=== PATIENT | female | born 1935 | race Caucasian/White ===

== ENCOUNTER → 2017-07-11 | Outpatient (CLI) | payer BC, MEDICARE ==
[2016-11-14 11:00] VITALS: BP 143/61
[~2017-07-11] MED LIST: ASCO500C PO; CYAN250012 PO; DABI150C PO; GREE1CAP5 PO; MULT-245 PO; OMEG500C PO; POTASSIUM CHLO10 MEQ PO; PRAV20TA2 PO; SERT50TA PO
--- NOTE | 2017-07-11 15:24 | KCIC ---
Indication: Right radiculopathy. Pacemaker. Fall in the last few months with swelling on left side. Technique: Axial images and coronal and sagittal reformatted images are provided. No comparison is available. One or more of the following individualized dose reduction techniques were utilized for this examination: 1. Automated exposure control 2. Adjustment of the mA and/or kV according to patient size 3. Use of iterative reconstruction technique Findings: There is levocurvature centered at L1-L2. There is endplate sclerosis greatest at L1-L2. Schmorl's nodes are noted at L1-L2 and L2-L3. There is atheromatous disease in the abdominal aorta without aneurysm. Canal and foraminal evaluation is limited without intrathecal contrast. There are 5 lumbar type vertebral bodies. Degenerative findings will be estimated below. T12-L1: There is a disc bulge without canal or foraminal compromise. L1-L2: There is a disc osteophyte complex, greater on the right. Narrowing of the interspace is greater on the right. There is no canal stenosis. There is high-grade right foraminal narrowing. L2-L3: Minimal disc bulge and facet hypertrophy are noted without canal or foraminal compromise. L3-L4: Disc bulge and facet and ligamentum flavum hypertrophy are noted. Midline AP diameter of the thecal sac appears narrowed to 9-10 mm, mild. There is also mild left foraminal narrowing. L4-L5: Disc bulge and facet and ligamentum flavum hypertrophy are noted without canal or foraminal compromise. L5-S1: There is facet hypertrophy without high-grade canal or foraminal compromise. IMPRESSION: Degenerative changes in the lumbar spine likely result in mild canal stenosis at L3-L4. Foraminal narrowing appears high-grade on the right at L1-L2. Electronically signed by: Cole Boogie MD (07/11/2017 3:21 PM) [facility]
== END | disposition home or self-care (01) ==
LOC: KCIC CT 14:29
PROVIDERS: ATTEND Internal Medicine
DX: M54.16 Radiculopathy, lumbar region (principal); W19.XXXD Unspecified fall, subsequent encounter
CPT/HCPCS: 72131

== ENCOUNTER → 2017-08-05 | Outpatient (CLI) | payer BC, MEDICARE ==
[2016-11-14 11:00] VITALS: BP 143/61
[~2017-08-05] MED LIST changes: +ASPI-482 PO; +CRESTOR5 MG PO; +MAGN400C PO; +METR500T8 PO; +MINO50CA PO; +PROPOFOL 20 ML IV ONE
--- NOTE | 2017-08-05 18:14 | PAIN ---
DATE OF SERVICE: 08/05/2017 INITIAL CONSULTATION FOR PAIN CLINIC CHIEF COMPLAINT: Low back and right lower extremity pain. HISTORY OF PRESENT ILLNESS: This is an 82-year-old female who presents with history of pain for many years, increasing over the past 3-4 months, low back and the right lower extremity with radiating pain into the lateral anterior aspect of the thigh, lateral calf, medial calf into the big toe, numbness and tingling. The pain is a shooting, throbbing pain and is becoming more constant with numbness and burning, cramping pain in the mid back and low back as well. The patient reports she feels that her back swells on the left side and gets "puffy" when the pain is at its worst. The patient reports it is worse with standing, walking, changing positions, better with sitting and better with lying down, but it wakes her from sleep several times at night, usually on the left side in the mid back. The patient reports she is taking melatonin to try and get back to sleep, which she states usually helps, but not every night. The patient reports it does not affect her bowel or bladder control. The pain does not affect her ability to walk significantly unless she is on her feet for more than 10-15 minutes and feels that right leg just fatigues much more easily than the left one. The patient reports no loss of motor function, but significant fatigability in the right leg with ambulation. The patient reports disability rating from 0-10, 10 being the worst, is at 8 with family and home responsibilities, recreation, occupation and life support activities; is at 5 with social activity, 0 with self-care. The patient has tried Aleve, which helps to a mild extent, but generally has not been helping over the past 3-4 weeks. The patient reports she has had previous epidural injections many years ago at an outside facility, has had physical therapy, which she is redoing and starting again in about 1 week, has had chiropractic treatment as well as exercise, which she does currently and stretching and strengthening. PAST MEDICAL HISTORY: Significant for shortness of breath, anemia with blood transfusions, pacemaker placement for atrial fibrillation, history of arthritis, osteoporosis, strokes, headaches. PREVIOUS SURGERIES: Include total hysterectomy, carpal tunnel release on the right, fractured ankle bilaterally, pacemaker and battery replacement, most recently in 2014, bilateral cataract extractions and bladder suspension x 2. CURRENT MEDICATIONS: Include Pradaxa, minocycline, Zoloft, rosuvastatin, metronidazole, daily baby aspirin, vitamin C, multivitamins, magnesium, fish oil. ALLERGIES: THE PATIENT IS ALLERGIC TO CONTRAST DYE AND IBUPROFEN. FAMILY HISTORY: Significant for heart disease, cancer in a brother. SOCIAL HISTORY: The patient drinks alcohol only occasionally. Does not smoke. He is , lives with her spouse locally in [place], [place], is currently retired. REVIEW OF SYSTEMS: The patient's review of systems is positive for those items mentioned in history of present illness. All systems reviewed and otherwise negative. It is complete, full and well documented on the patient's chart. PHYSICAL EXAMINATION: VITAL SIGNS: Today, the patient's blood pressure is 140/75, pulse 64, respirations 16, temperature is 97.6 degrees Fahrenheit, height is 5 feet 3 inches, weight is 138 pounds. GENERAL: The patient is awake, alert, oriented, appropriate, very pleasant demeanor. HEENT: Head shows normocephalic, atraumatic. Extraocular movements are intact and symmetrical. Oral cavity, mucous membranes are moist and pink. Dentition is intact. NECK: Shows anterior throat supple without palpable lymphadenopathy noted. Swallow reflex is symmetrical. CHEST: Shows normal on inspection. Breath sounds are clear to auscultation bilaterally. HEART: Shows S1 and S2 clear. No murmurs auscultated. ABDOMEN: Soft, nontender, nondistended. No palpable organomegaly. There is no rebound or guarding demonstrated. The patient shows pacemaker placement of the left infraclavicular region. BACK: Shows spine grossly in the midline. Lumbar and thoracic kyphosis are normal in appearance and lumbar lordotic curvature is normal. Cervical lordotic curvature is normal as well. Neck shows full rotational motion of cervical spine, both laterally as well as extension and flexion without difficulty. The patient's low back shows on inspection and mid back shows hypertrophy of the left thoracic paraspinous musculature in the middle and lower distribution as well as the entire upper, lower and middle distribution of the lumbar paraspinous musculature, which is firm to a moderate extent with palpation and tender moderately as well, but not tender on the right side and slightly hypertrophied, left compared to the right in the mid thoracic and low thoracic as well as the upper, middle and lower distribution of paraspinous muscles on the lumbar distribution. The patient shows good rotation of motion; however, both laterally as well as extension and flexion 10 degrees, right and left extension 10 degrees, forward flexion 45 degrees without significant pain reported. No tenderness over the spinous processes, sacrum or sacroiliac regions. Lower extremities show deep tendon reflexes at 1+ in the patellar and tendo calcaneus tendons. Motor exam is strong with 5/5 dorsiflexion, extension, quadriceps and hamstring flexion is symmetrical. Peripheral pulses are 1+ posterior tibial and dorsalis pedis pulses. No peripheral edema is noted. No clubbing, no cyanosis. Straight leg raise noted to be positive on the right at about 35 degrees, which is decreased with knee flexion. Left side is negative. Gaenslen and Samuel maneuvers are negative bilaterally. The patient is able to stand, stand on her toes without significant difficulty without loss of balance, is walking with a normal appearing gait. Does not appear to favor the right or left lower extremities, not using any assistive devices to ambulate such as canes or walkers. DIAGNOSTIC STUDIES: CT scan of the lumbar spine dated 07/11/2017 shows L3-L4 disk bulge and facet ligamentum flavum hypertrophy with midline AP diameter of the thecal sac narrowed at 9-10 mm mildly, also left mild foraminal narrowing. L4-L5 shows disk bulge and facet ligamentum flavum hypertrophy without canal or foraminal compromise. IMPRESSION: 1. This is an 82-year-old female with long history of low back pain, increasing over the past 3-4 months, right lower extremity in a radicular fashion. 2. Arthritis. 3. Atrial fibrillation with pacemaker. PLAN: Options were discussed with the patient including conservative medical management, physical therapy and interventional techniques. She would like to pursue interventional techniques. She is currently doing therapies and exercise on her own and physical therapy to start next week. We discussed a lumbar epidural steroid injection using description as well as anatomical models to describe the procedure. We will first check with her garbage man to hold the Pradaxa for approximately 4 days and if this is cleared and deemed to be safe to do so, we will have her return for lumbar epidural steroid injection at that time. The patient understands and agrees, also keep taking her medication until we hear back from her garbage man and we will notify her of the response. The patient will continue to increase her activity as tolerated and follow up with physical therapy coming next week as well. QUYNH SERNA MD DR: CHRIS/yury JOB#: [id number] / [id number] BROOK Mcarthur MD
== END | disposition home or self-care (01) ==
LOC: PNCL 10:17
PROVIDERS: ATTEND Anesthesiology
DX: M81.0 Age-related osteoporosis without current pathological fracture (principal); I48.91 Unspecified atrial fibrillation; M79.604 Pain in right leg; M54.5 Low back pain; R53.83 Other fatigue; R20.0 Anesthesia of skin; Z86.73 Personal history of transient ischemic attack (TIA), and cerebral infarction without residual deficits; Z95.0 Presence of cardiac pacemaker
CPT/HCPCS: G0463; J2704

== ENCOUNTER → 2017-08-17 | Outpatient (CLI) | payer BC, MEDICARE ==
[2016-11-14 11:00] VITALS: BP 143/61
[~2017-08-17] MED LIST changes: +IOHEXOL 180 MG/ML 10 ML VIAL. ONE; -PROPOFOL 20 ML IV ONE; +methylPREDNISolone ACETATE 40 MG/ML VIAL. ONE; +methylPREDNISolone ACETATE 80 MG/ML VIAL. ONE
--- NOTE | 2017-08-17 11:31 | PAIN ---
DATE OF SERVICE: 08/17/2017 PROGRESS NOTE FOR PAIN CLINIC DIAGNOSES: Lumbar radiculopathy with lumbar degenerative disk disease. HISTORY OF PRESENT ILLNESS: This is a young 82-year-old female who returns for followup status post holding Pradaxa for 4 days. She has been off of now for almost 5 days, returns for lumbar epidural steroid injections today. The patient reports still significant pain in the low back, right lower extremity as it was previously radiating to the posterior gluteus, lateral thigh, anterior thigh, posterior lower leg, lateral and medial lower leg as well, cramping, aching, sharp, shooting and radiating. The patient reports no new motor or sensory deficits and no new bowel or bladder incontinence. The patient still had difficulty sleeping. She is waking from sleep every 5 hours, has to reposition or get out of bed and change position, but she is able to get back to sleep. The patient rates her pain as an 8 on a scale of 10 at its worst, 7 on average and a 4 on a scale of 10 at its least and is a 4 today. The patient reports no new motor or sensory deficits and no new bowel or bladder incontinence. PHYSICAL EXAMINATION: VITAL SIGNS: Today, blood pressure is 140/79, pulse 65, respirations are 20, temperature 97.5 degrees Fahrenheit and weight is 138 pounds. GENERAL: The patient is awake, alert, oriented, appropriate and very pleasant demeanor. The patient is accompanied by her . HEENT: Head shows normocephalic and atraumatic. Extraocular movements are intact, symmetrical. Oral cavity, mucous membranes are moist and pink. Dentition is intact. NECK: Shows anterior throat supple without palpable lymphadenopathy noted. Swallow reflex is symmetrical. CHEST: Shows normal on inspection. Breath sounds clear to auscultation bilaterally. HEART: Shows S1 and S2 clear. ABDOMEN: Soft, nontender and nondistended. No palpable organomegaly. No rebound or guarding demonstrated. BACK: Shows spine grossly in the midline. Lumbar paraspinous muscle shows some moderate tenderness with palpation but is symmetrical, firm and diffusely tender in the low lumbar distribution, slightly more on the right than the left but symmetrical. The patient shows good rotational motion of the lumbar spine, both laterally as well as extension and flexion without difficulty. No tenderness over the sacrum or sacroiliac regions. LOWER EXTREMITIES: Showed deep tendon reflexes 1+ in the patellar and tendo-calcaneus tendons. Motor exam is strong with 5/5 dorsiflexion, extension, quadriceps and hamstring flexion and symmetrical as well. Peripheral pulses are 1+ posterior tibial and no edema is noted bilaterally. Options were discussed with the patient and the patient's old chart was reviewed as her current medication regimen updated. Current review of systems updated today as well and we will proceed with a lumbar epidural steroid injection today with fluoroscopic guidance. Risks were again discussed including, but not limited to bleeding, infection, possibility of epidural hematoma and subsequent neurologic compromise, dural puncture, headaches, spinal cord and/or nerve damage, side effects of steroid medication and poor results regarding pain control. The patient understands and wishes to proceed. The patient will return to clinic in approximately 2 weeks for followup, was counseled to return appointment, activity level and side effects to be aware of. DIAGNOSIS: Lumbar radiculopathy with lumbar degenerative disease. PROCEDURE: Lumbar epidural steroid injection in translaminar approach, L4-L5 level using C-arm fluoroscopic guidance under sterile prep and drape using local anesthetic. MEDICATION INJECTED: A total of 120 mg Depo-Medrol plus 10 mL of preservative-free normal saline and 2 mL of Isovue for contrast. CONDITION AT DISCHARGE: Stable. The patient tolerated procedure well and had no complications. QUYNH SERNA MD DR: CHRIS/yury JOB#: [id number] / [id number]
== END | disposition home or self-care (01) ==
LOC: PNCL 09:24
PROVIDERS: ATTEND Anesthesiology
DX: M51.16 Intervertebral disc disorders with radiculopathy, lumbar region (principal); I48.91 Unspecified atrial fibrillation; I10 Essential (primary) hypertension; Z95.0 Presence of cardiac pacemaker; M81.0 Age-related osteoporosis without current pathological fracture; Z79.899 Other long term (current) drug therapy; Z86.73 Personal history of transient ischemic attack (TIA), and cerebral infarction without residual deficits
CPT/HCPCS: 62323; J1030; J1040

== ENCOUNTER → 2017-08-31 | Outpatient (CLI) | payer BC, MEDICARE ==
[2016-11-14 11:00] VITALS: BP 143/61
[~2017-08-31] MED LIST changes: -IOHEXOL 180 MG/ML 10 ML VIAL. ONE
--- NOTE | 2017-08-31 14:01 | PAIN ---
DATE OF SERVICE: 08/31/2017 DIAGNOSES: Lumbar radiculopathy with lumbar degenerative disk disease. HISTORY OF PRESENT ILLNESS: This is an 82-year-old female who returns for followup status post lumbar epidural steroid injection x 1. The patient reports about 40% improvement overall, still some pain in the low back and right lower extremity as it was previously. The patient reports no new motor or sensory deficits, however, no new bowel or bladder incontinence or other complaints. She feels overall she is doing quite well. She has increased her activity with greater ease and comfort, has been sleeping better at night, reports still some pain in the low back and into the right lower extremity, mostly in the posterior gluteus, lateral anterior thigh, medial lower leg with walking to standing, changing position, but better with sitting and lying down and again still sleeping better at night, but does have some pain about every 5 hours or so, which may wake her up. The patient reports no new motor or sensory deficits, no new bowel or bladder incontinence or other complaints. PHYSICAL EXAMINATION: VITAL SIGNS: Today, the patient's blood pressure is 141/72, pulse 70, respirations 16, temperature 97.4 degrees Fahrenheit, height is 5 feet 3 inches, weight is 137 pounds. Pain is 4 on a scale of 10 today, she describes cramping, aching, dull and constant. HEENT: Head shows normocephalic, atraumatic. Extraocular movements are intact, symmetrical. Oral cavity: Mucous membranes moist and pink. Dentition is intact. NECK: Shows anterior throat supple without palpable lymphadenopathy noted. Swallow reflex is symmetrical. Neck shows full rotational motion of the cervical spine without difficulty. CHEST: Shows normal on inspection. Breath sounds are clear to auscultation bilaterally. HEART: Shows S1 and S2 clear. ABDOMEN: Soft, nontender, nondistended. No palpable organomegaly is noted. BACK: Shows spine grossly midline. Lumbar paraspinous musculature shows symmetrical on inspection, with palpation shows some mild tenderness throughout the middle and lower distribution of paraspinous muscles, but only diffusely without radiation and without asymmetry, no trigger points, no tenderness over the sacrum or sacroiliac regions. The patient shows good rotation and motion of the lumbar spine, both laterally greater than 10 degrees right and left as well as extension greater than 10 degrees, forward flexion 45 degrees without significant pain reported. EXTREMITIES: Lower extremities showed deep tendon reflexes 1+ in the patellar and tendo calcaneus tendons. Motor exam is strong with 5/5 dorsiflexion, extension and equal. Peripheral pulses are 1+ posterior tibia. No peripheral edema is noted. Options were discussed with the patient and the patient's old chart was reviewed as her current medication regimen updated. Current review of systems updated today as well. We will proceed with a second lumbar epidural steroid injection in this series with fluoroscopic guidance. Risks were again discussed including, but not limited to bleeding, infection, possibility of epidural hematoma, subsequent neurologic compromise, dural puncture, headaches, spinal cord and/or nerve damage, side effects of steroid medication and poor results regarding pain control. The patient understands and wishes to proceed. The patient will return to clinic in approximately 2 weeks for followup. She was counseled as to return appointment, activity level and side effects to be aware of. DIAGNOSES: Lumbar radiculopathy with lumbar degenerative disk disease. PROCEDURE: Lumbar epidural steroid injection in translaminar approach at L4-L5 level, using C-arm fluoroscopic guidance under sterile prep and drape using local anesthetic. Medication injected a total of 120 mg Depo-Medrol plus 10 mL of preservative free normal saline and 2 mL of Isovue for contrast. CONDITION AT DISCHARGE: Stable. The patient tolerated procedure well, had no complications. QUYNH SERNA MD DR: CHRIS/yury JOB#: [id number] / [id number]
== END | disposition home or self-care (01) ==
LOC: PNCL 08:20
PROVIDERS: ATTEND Anesthesiology
DX: M51.16 Intervertebral disc disorders with radiculopathy, lumbar region (principal); M81.0 Age-related osteoporosis without current pathological fracture; I10 Essential (primary) hypertension; Z79.899 Other long term (current) drug therapy; Z95.0 Presence of cardiac pacemaker; Z86.73 Personal history of transient ischemic attack (TIA), and cerebral infarction without residual deficits; I48.91 Unspecified atrial fibrillation
CPT/HCPCS: 62323; J1030; J1040

== ENCOUNTER 2017-09-27 22:48 | Emergency (ER) | payer BC, MEDICARE ==
[~2017-09-27] VITALS: Ht 160 cm; Wt 62.1 kg
[~2017-09-27 22:48] MED LIST changes: -methylPREDNISolone ACETATE 40 MG/ML VIAL. ONE; -methylPREDNISolone ACETATE 80 MG/ML VIAL. ONE
--- NOTE | 2017-09-27 23:17 | PHYS DOC ---
Past Medical History Past Medical History: A-Fib, Depression, High Cholesterol, TIA Past Surgical History: Pacemaker, Tonsillectomy, Other Additional Past Surgical Histo: ANKLE,CARPAL TUNNEL Alcohol Use: None Drug Use: None Adult General Chief Complaint Chief Complaint: NOSEBLEED HPI HPI Patient is a 82 year old female with history of chronic A. fib on Pradaxa who presents with nosebleed starting 35 minutes prior to ED arrival. Bleeding is from right nares. Patient denies trauma to this region. Denies history of frequent nosebleeds. does not wear oxygen and states that her blood pressure is normally well controlled. No other acute symptoms or complaints. [] Review of Systems Review of Systems ROS as per HPI [] All other systems were reviewed and found to be within normal limits, except as documented in this note. Current Medications Current Medications Current Medications Medications (Trade) Dose Ordered Sig/Marian Start Time Stop Time Status Last Admin Dose Admin Cephalexin HCl (Keflex) 500 mg ONCE ONCE 09/28/17 00:30 09/28/17 00:30 DC 09/28/17 00:15 500 MG Oxymetazoline HCl (Afrin) 2 spray 1X ONCE 09/27/17 23:45 09/27/17 23:46 DC 09/27/17 23:40 2 SPRAY Silver Nitrate/ Potassium Nitrate 1 each STK-MED ONCE 09/27/17 23:19 09/27/17 23:20 DC Allergies Allergies Allergies Coded Allergies Type Severity Reaction Last Updated Verified Iodine and Iodide Containing Produc Allergy Intermediate 11/13/16 Yes ibuprofen Allergy Intermediate 09/27/17 Yes levofloxacin Allergy Intermediate 09/27/17 Yes Physical Exam Physical Exam Constitutional: Well developed, well nourished, no acute distress, non-toxic appearance. [] HENT: Normocephalic, atraumatic, bilateral external ears normal, oropharynx moist, no oral exudates, nose, superficial abrasions ant septum with gentle oozing. [] Eyes: PERRLA, EOMI, conjunctiva normal, no discharge. [] Psychologic: Affect normal, judgement normal, mood normal. [] Current Patient Data Vital Signs Vital Signs Date Time Temp Pulse Resp B/P (MAP) Pulse Ox O2 Delivery O2 Flow Rate FiO2 09/27/17 22:55 98.0 62 16 96 Room Air 98.0 EKG EKG [] Radiology/Procedures Radiology/Procedures [] Course & Med Decision Making Course & Med Decision Making Pertinent Labs and Imaging studies reviewed. (See chart for details) [Silver nitrate applied to superficial abrasion right nares with limited improvement. Anterior Rhino Rocket placed. Patient monitored without rebleeding. First dose of antibiotics given. ENT referral provided. Return precautions reviewed.] Dragon Disclaimer Dragon Disclaimer This electronic medical record was generated, in whole or in part, using a voice recognition dictation system. Departure Departure Referrals: BROOK DELUNA MD (PCP) JON BLAIR DO Sep 27, 2017 23:17
[2017-09-27] MEDS ORDERED: SILVER NITRATE STICK TP ONE ×2 (23:19→23:30)
[2017-09-27] MEDS ORDERED: OXYMETAZOLINE 0.05% NASAL SPRAY 30ML BOTTLE. NS ONE (23:45)
[2017-09-28 00:10] VITALS: BP 160/70
[2017-09-28] MEDS ORDERED: CEPHALEXIN 250 MG CAPSULE. PO ONE (00:30)
== END 2017-09-28 00:12 | disposition home or self-care (01) ==
LOC: ER 22:48
DX: S00.31XA Abrasion of nose, initial encounter (principal); R04.0 Epistaxis; I48.2 Chronic atrial fibrillation; F32.9 Major depressive disorder, single episode, unspecified; E78.00 Pure hypercholesterolemia, unspecified; Z86.73 Personal history of transient ischemic attack (TIA), and cerebral infarction without residual deficits; Z95.0 Presence of cardiac pacemaker; Z79.01 Long term (current) use of anticoagulants; Z91.041 Radiographic dye allergy status; Z88.6 Allergy status to analgesic agent; Z88.1 Allergy status to other antibiotic agents; X58.XXXA Exposure to other specified factors, initial encounter; Y93.89 Activity, other specified; Y92.89 Other specified places as the place of occurrence of the external cause; Y99.8 Other external cause status
CPT/HCPCS: 30901; 99284-25

== ENCOUNTER → 2018-02-03 | Outpatient (CLI) | payer MEDICARE ==
[2018-02-03 09:11] LABS: ADD MAN DIFF? NO
[2018-02-03 09:32] LABS: BASO # 0.1 x10^3/uL (0.0-0.2); BASO % 1 % (0-3); EOS # 0.1 x10^3/uL (0.0-0.7); EOS % 3 % (0-3); HEMATOCRIT 43.4 % (36.0-47.0); HEMOGLOBIN 14.3 g/dL (12.0-15.5); LYMPH # 1.7 x10^3/uL (1.0-4.8); LYMPH % 36 % (24-48); MEAN CORPUSCULAR HEMOGLOBIN 30 pg (25-35); MEAN CORPUSCULAR HGB CONC 33 g/dL (31-37); MEAN CORPUSCULAR VOLUME 90 fL (79-100); MONO # 0.8 x10^3/uL (0.0-1.1); MONO % 16 % (0-9); NEUT # 2.1 x10^3uL (1.8-7.7); NEUT % 44 % (31-73); PLATELET COUNT 264 x10^3/uL (140-400); RED CELL DISTRIBUTION WIDTH 13.9 % (11.5-14.5); WHITE BLOOD COUNT 4.7 x10^3/uL (4.0-11.0)
[2018-02-03 09:38] LABS: ALBUMIN 4.1 g/dL (3.4-5.0); ALBUMIN/GLOBULIN RATIO 1.1 (1.0-1.7); ALK PHOS 110 U/L (46-116); ALT (SGPT) 40 U/L (14-59); ANION GAP 8 (6-14); AST (SGOT) 31 U/L (15-37); BLOOD UREA NITROGEN 28 mg/dL (7-20); BUN/CREATININE RATIO 35 (6-20); CALCIUM 9.8 mg/dL (8.5-10.1); CARBON DIOXIDE 32 mmol/L (21-32); CHLORIDE 105 mmol/L (98-107); CREATININE 0.8 mg/dL (0.6-1.0); GFR 68.8; GLUCOSE 94 mg/dL (70-99); POTASSIUM 4.1 mmol/L (3.5-5.1); SODIUM 145 mmol/L (136-145); TOTAL BILIRUBIN 0.6 mg/dL (0.2-1.0); TOTAL PROTEIN 7.7 g/dL (6.4-8.2)
[2018-02-03 09:45] LABS: NT-PRO BNP 2225 pg/mL (0-449)
[2018-02-03] MEDS: REGADENOSON 0.4 MG/5 ML DISP.SYRIN. IV (11:25)
== END | disposition home or self-care (01) ==
LOC: NM 08:49
DX: I48.1 Persistent atrial fibrillation (principal); Z95.0 Presence of cardiac pacemaker; Z79.01 Long term (current) use of anticoagulants
CPT/HCPCS: 36415; 78452; 80053; 83880; 85025; 93017; 96374; 96375; 96376; A9500; J2785

== ENCOUNTER 2018-08-08 06:30 | Outpatient (CLI) | payer MEDICARE ==
[2018-08-08] VITALS (11 sets, daily range): BP systolic 110–166; BP diastolic 45–73
[~2018-08-08] VITALS: Ht 157.5 cm; Wt 59.0 kg
[~2018-08-08 06:30] MED LIST changes: -MINO50CA PO; +MINO50CA3 PO; +POTA10TA12 PO; -POTASSIUM CHLO10 MEQ PO
[2018-08-08] MEDS ORDERED: LIDOCAINE 1% PF 2 ML VIAL. ONE (07:05)
[2018-08-08] MEDS ORDERED: IODIXANOL 320 MG/ML 100 ML VIAL. ONE (07:05)
[2018-08-08] MEDS ORDERED: LEVO50TA5 PO (07:29)
[2018-08-08] MEDS ORDERED: APIX5TAB PO (07:29)
[2018-08-08] MEDS ORDERED: ATOR20TA58 PO (07:29)
[2018-08-08 07:37] LABS: CALCIUM 9.3 mg/dL (8.5-10.1); CREATININE 0.7 mg/dL (0.6-1.0); GFR 80.3; POTASSIUM 3.3 mmol/L (3.5-5.1)
[2018-08-08] MEDS ORDERED: FAMOTIDINE 20 MG/2 ML VIAL ONE (07:38)
[2018-08-08] MEDS ORDERED: methylPREDNISolone SOD SUCC PF 125 MG/2 ML VIAL. ONE (07:38)
[2018-08-08] MEDS ORDERED: FAMOTIDINE 20 MG/2 ML VIAL IVP ONE (07:45)
[2018-08-08] MEDS ORDERED: methylPREDNISolone SOD SUCC PF 125 MG/2 ML VIAL. IV ONE (07:45)
[2018-08-08] MEDS ORDERED: diphenhydrAMINE 50 MG/ML VIAL IVP ONE (07:45)
[2018-08-08 07:48] LABS: HEMOGLOBIN 14.2 g/dL (12.0-15.5); RED BLOOD COUNT 4.57 x10^6/uL (3.50-5.40); RED CELL DISTRIBUTION WIDTH 13.9 % (11.5-14.5); WHITE BLOOD COUNT 5.4 x10^3/uL (4.0-11.0)
[2018-08-08 07:58] LABS: PROTHROMBIN TIME PATIENT 14.5 SEC (11.7-14.0)
[2018-08-08] MEDS ORDERED: fentaNYL PF VIAL 100 MCG/2 ML VIAL ONE (08:14)
[2018-08-08] MEDS ORDERED: MIDAZOLAM HCL/PF 2 MG/2 ML VIAL. ONE (08:14)
[2018-08-08] MEDS ORDERED: VERAPAMIL 5 MG/2 ML VIAL. ONE (08:15)
[2018-08-08] MEDS ORDERED: NITROGLYCERIN 200 MCG/2 ML SYRINGE FOR CATH/VASC LAB. ONE (08:15)
[2018-08-08] MEDS ORDERED: HEPARIN for IV BOLUS 10,000 UNIT/10 ML VIAL. ONE (08:15)
[2018-08-08] MEDS ORDERED: VERAPAMIL 5 MG/2 ML VIAL. IART ONE (09:00)
[2018-08-08] MEDS ORDERED: HEPARIN for IV BOLUS 10,000 UNIT/10 ML VIAL. IV ONE (09:00)
[2018-08-08] MEDS ORDERED: LIDOCAINE 1% PF 2 ML VIAL. INJ ONE (09:00)
[2018-08-08] MEDS ORDERED: IODIXANOL 320 MG/ML 100 ML VIAL. IART ONE (09:00)
[2018-08-08] MEDS ORDERED: POTASSIUM CHLORIDE 20 MEQ TABLET.ER. PO ONE (09:00)
[2018-08-08] MEDS ORDERED: NITROGLYCERIN 200 MCG/2 ML SYRINGE FOR CATH/VASC LAB. IART ONE (09:00)
[2018-08-08] MEDS ORDERED: fentaNYL PF VIAL 100 MCG/2 ML VIAL IV ONE (09:00)
[2018-08-08] MEDS ORDERED: MIDAZOLAM HCL/PF 2 MG/2 ML VIAL. IV ONE (09:00)
[2018-08-08] MEDS ORDERED: HEPARIN for IV BOLUS 10,000 UNIT/10 ML VIAL. IART ONE (09:00)
[2018-08-08] MEDS ORDERED: IV 1/2 NORMAL SALINE 1,000 ML IV SCH (09:06)
--- NOTE | 2018-08-08 09:06 | PDOC ---
MODERATE SEDATION ASSESSMENT RISKS/ALTERNATIVES Risks/Alternatives Risks and alternatives of this type of sedation and procedure discussed with: RISK/ALTERNATIVES: Patient H & P ON CHART H & P H & P on chart and reviewed for co-morbid conditions and appropriate labs. H&P ON CHART: Yes STATUS PREG STATUS ASSESSED: N/A MEDS/ALLERGIES REVIEWED Meds/Allergies Reviewed Medications and Allergies including time and route of recently administered narcotics and sedatives. MEDS/ALLERGIES REVIEWED: Yes ASA RATING ASA RATING: II AIRWAY ASSESSMENT Airway Assessment Airway patency, oral function limitations, presence of caps, crowns, dentures, partials, and ability to extend neck assessed. AIRWAY ASSESSMENT: Yes MALLAMPATI SCORE MALLAMPATI SCORE: II PRE-SEDATION ASSESSMENT PRE-SEDATION ASSESSMENT: Yes DEBBIE SCHWAB MD Aug 08, 2018 09:05
[2018-08-08] MEDS ORDERED: NITROGLYCERIN SUBLINGUAL 0.4 MG BOTTLE OF 25. SL PRN (09:15)
--- NOTE | 2018-08-08 09:17 | CARD ---
MR#: [id number] Date of Study: 08/08/2018 Ordering Physician: MI MCDONOUGH, Referring Physician: MI MCDONOUGH, Tech: RT Judith (R) APPROVED REPORT Technologist: RT Judith (R) Nurse: Maricruz Yi R.N. Procedure(s) performed: 1. Left heart catheterization, selective coronary angiography and left ventr iculography via right transradial approach 2. Instant wave free ratio (IFR) measurement right coronary artery stenosis Moderate sedation: 34 mins INDICATION The indication(s) include : Dyspnea on exertion and abnormal stress test. PROCEDURE NARRATIVE After explaining the risks, benefits and alternative options, informed consent was obtained from graham ent. Patient was brought to the cardiac Wind Development Director and right wrist was prepped and draped in the usual fashion after confirming a positive modified Stoney's test. Arterial access was obtained in the [facility] t radial artery and a 6 Malaysian sheath was inserted. 6 Malaysian Homar catheter was used to perform vipin ective angiography of the left and right coronary arteries. 6 Malaysian pigtail catheter was used to pe rform left ventriculography. Since patient was found to have angiographically suspicious lesion invo lving the ostium of the right coronary artery, a decision was made to perform physiologic assessment wih Instant wave free ratio (IFR) measurement. The stenosis was crossed with a [place] verrata Pressu reWire and IFR measurement was made that came back physiologically insignificant. Hence no interventi ons were performed. Patient tolerated the procedure well. Hemostasis was achieved using TR band. Th ere were no immediate complications. The following findings were noted. FINDINGS 1. Hemodynamics: Left ventricular end-diastolic pressure of 20 mmHg consistent with chronic diastoli c heart failure. No pullback gradient across the aortic valve. 2. Left ventriculography: Borderline left ventricle systolic function with ejection fraction estimat ed at 50%. No significant mitral regurgitation seen. 3. Coronary angiography: a. The left main coronary artery arose from the left sinus of Valsalva, gave rise to the left anteri or descending and left circumflex arteries and did not show any significant stenosis. b. The left anterior descending artery showed 30% stenosis in the midsegment. c. The left circumflex artery did not show any significant stenosis. d. The right coronary artery arose from the right sinus of Valsalva and showed 40% stenosis involvin g the ostial segment that was physiologically insignificant based on IFR measurement of 1.0. Conclusion 1. Nonobstructive coronary artery disease confirmed with IFR measurement of right coronary artery 2. Borderline left ventricle systolic function with ejection fraction estimated at 50%. Recommendations Medical Therapy Signed by : Theodore Barakat, Electronically Approved : 08/08/2018 09:17:05
== END 2018-08-08 13:19 | disposition home or self-care (01) ==
LOC: CCL 06:30
PROVIDERS: ATTEND Internal Medicine Cardiovascular Disease
DX: I25.10 Atherosclerotic heart disease of native coronary artery without angina pectoris (principal); Z88.1 Allergy status to other antibiotic agents; Z88.8 Allergy status to other drugs, medicaments and biological substances
CPT/HCPCS: 36415; 80048; 85027; 85610; 93458; 93571; 99152; 99153; C1769; C1892; J1200; J1644; J2250; J2930; J3010; J3490; Q9967; S0028

== ENCOUNTER → 2018-12-01 | Outpatient (CLI) | payer MEDICARE ==
[2018-08-08 12:15] VITALS: BP 125/58
[~2018-12-01] MED LIST changes: +APIX5TAB PO; +ATOR20TA58 PO; +CYCL10TA2 PO; +HYDR-3164 PO; +LEVO50TA5 PO; +METR-34 PO; -METR500T8 PO
--- NOTE | 2018-12-01 14:59 | KCIC ---
CT abdomen pelvis without contrast dated 12/01/2018. No comparison available. Clinical data indication: Right flank pain. TECHNIQUE: Contiguous axial imaging of the abdomen and pelvis performed without the administration of IV or oral contrast. One or more of the following individualized dose reduction techniques were utilized for this examination: 1. Automated exposure control 2. Adjustment of the mA and/or kV according to patient size 3. Use of iterative reconstruction technique. FINDINGS: Limited images of lung bases are clear. Minimal linear scar or atelectasis in the lower lobes. Heart size within normal limits. No pleural or pericardial effusion. Solid abdominal viscera not well evaluated in the absence of contrast material. No apparent attenuation abnormality of the liver or spleen. Pancreas, adrenal glands and gallbladder are unremarkable. Kidneys are symmetric in size and attenuation. No calcific renal or ureteral stone. No hydronephrosis. Unopacified GI tract is normal in caliber and contour. No focal bowel wall thickening. No inflammatory stranding in the mesentery. Appendix normal in caliber. No ascites or lymphadenopathy. Abdominal aorta normal in caliber. Images of pelvis show mildly distended urinary bladder. Uterus is surgically absent. No free pelvic fluid or pelvic lymphadenopathy. Bone windows show no acute findings. There is levoconvex scoliotic curvature with mild lower lumbar spondylosis. Degenerative change at the pubic symphysis. IMPRESSION: 1. No acute abnormality of abdomen or pelvis. No evidence of renal stone or hydronephrosis. 2. Status post hysterectomy. Electronically signed by: Darryl Navas MD (12/01/2018 2:54 PM) [facility]
== END | disposition home or self-care (01) ==
LOC: KCIC CT 14:00
PROVIDERS: ATTEND Family Medicine
DX: R10.9 Unspecified abdominal pain (principal); R31.0 Gross hematuria; M47.816 Spondylosis without myelopathy or radiculopathy, lumbar region; Z90.710 Acquired absence of both cervix and uterus
CPT/HCPCS: 74176

== ENCOUNTER 2018-12-21 13:40 | Emergency (ER) | payer MEDICARE ==
[~2018-12-21] VITALS: Ht 160 cm; Wt 59.0 kg
[~2018-12-21 13:40] MED LIST changes: -CYCL10TA2 PO; -HYDR-3164 PO
[2018-12-21 15:37] VITALS: BP 147/84
[2018-12-21] MEDS ORDERED: HYDROcodone/APAP 5/325MG 1 TAB TABLET PO ONE (15:45)
[2018-12-21] MEDS ORDERED: CYCLOBENZAPRINE 10 MG TABLET. PO ONE (15:45)
--- NOTE | 2018-12-21 16:23 | RAD ---
Thoracic and lumbar spine radiographs December 21, 2018 INDICATION: Mechanical fall today. COMPARISON: CT abdomen December 01, 2018 TECHNIQUE: 3 views of the thoracic spine and 3 views of the lumbar spine are provided. FINDINGS: Thoracic spine: There is levoconvex scoliosis of the thoracolumbar junction with apex levocurvature at T12-L1. There is mild dextrocurvature of the thoracic spine centered at T7-T8. Left chest wall cardiac device is identified with leads projecting over the right atrium and ventricle. Vertebral body heights are maintained. No acute compression deformity is visualized. Mild disc height loss is noted in the mid thoracic spine. Visualized portions of the cervical spine appears intact. Lumbar spine: There is rotoscoliosis of the lumbar spine with apex levocurvature at the thoracolumbar junction. There is osteopenia which limits evaluation of fine osseous detail. Moderate disc height loss with endplate sclerosis and remodeling at L1-L2. There is suggestion of a superior endplate compression deformity involving L4 with approximately 25 percent height loss. There may be fracture of the anterior superior endplate. Further evaluation with cross-sectional imaging may be of benefit. Results portions of the sacrum appear intact. Atherosclerotic changes of the abdominal aorta present. There is moderate facet arthropathy in the lower lumbar spine. IMPRESSION: 1. No acute fracture of the thoracic spine. There is a superior endplate compression fracture involving L4 with approximately 25 percent height loss and minimal retropulsion. Further evaluation with cross-sectional imaging may be of benefit. 2. S-shaped scoliosis of the thoracolumbar spine, as detailed above. Electronically signed by: Brunilda Huynh MD (12/21/2018 4:20 PM) [facility]
[2018-12-21 17:06] LABS: BILIRUBIN,URINE NEGATIVE (NEG); COLOR,URINE YELLOW; NITRITE,URINE NEGATIVE (NEG); PROTEIN,URINE NEGATIVE (NEG-TRACE); UROBILINOGEN,URINE 0.2 mg/dL (0.2 mg/dL)
[2018-12-21 17:12] LABS: CLARITY,URINE CLEAR
[2018-12-21 17:13] LABS: BACTERIA,URINE FEW /HPF (0-FEW); RBC,URINE 0 /HPF (0-2); SQUAMOUS EPITHELIAL CELL,UR FEW /LPF; WBC,URINE OCC /HPF (0-4)
--- NOTE | 2018-12-21 17:56 | RAD ---
CT LUMBAR SPINE WO CONTRAST Indication: Fall, low back pain Technique: Noncontrast CT imaging was performed of the lumbar spine, multiplanar reconstruction images submitted. One or more of the following individualized dose reduction techniques were utilized for this examination: 1. Automated exposure control 2. Adjustment of the mA and/or kV according to patient size 3. Use of iterative reconstruction technique. Comparison: July 11, 2017 Findings: There is a fracture of the anterior superior corner of L4 with minimal displacement, extending from the anterior cortical surface to the anterior, superior endplate. There is mild superior endplate concavity, no significant osseous retropulsion. There is again mild grade 1 anterior spondylolisthesis L5-S1, to lesser degree at L3-4 and L4-5, also minimal posterior subluxation L1 relative to L2. There is again advanced degenerative disc disease at L1-L2, to lesser degree at L2-3, L4-5, minimally L5-S1 and L3-4. There is again sclerotic endplate change at L1-L2. There is ibok-fp-[id number] levoscoliosis centered near L1-L2. There is mild left lateral subluxation of L3 relative L4, mild right lateral subluxation L1 relative L2. There is multilevel lumbar facet degenerative change. There is moderate narrowing of the right L1-2 neural foramen. IMPRESSION: 1. There is acute fracture involving the anterior superior corner of L4 and mild superior L4 endplate compression fracture not associated with significant osseous retropulsion. 2. There is multilevel lumbar degenerative disc disease. There is multilevel mild abnormal alignment as stated, multilevel facet degenerative change. There is lumbar levoscoliosis. Electronically signed by: Josemanuel Perez MD (12/21/2018 5:54 PM) [facility]
--- NOTE | 2018-12-21 18:17 | PHYS DOC ---
Past Medical History Past Medical History: A-Fib, Depression, High Cholesterol, TIA (ANGELA NARVAEZ APRN) Past Surgical History: Pacemaker, Tonsillectomy, Other Additional Past Surgical Histo: ANKLE,CARPAL TUNNEL (ANGELA NARVAEZ APRN) Alcohol Use: None Drug Use: None (ANGELA NARVAEZ APRN) Adult General Chief Complaint Chief Complaint: MECHANICAL FALL HPI HPI Patient is a 83 year old female with history of A. fib, hypertension, high cholesterol, who presents today to be evaluated status post falling in her car ride. She states she was moving some boxes when she lost her balance fell back and hit her back on the car in the garage. Patient denies any loss of consciousness. Rates the pain is 10 out of 10. He describes the pain as throbbing. Patient denies any pain radiating to bilateral lower extremities. Denies any loss of bowel bladder function. She states the pain is worse on ambulation. (ANGELA NARVAEZ APRN) Review of Systems Review of Systems Constitutional: Denies fever or chills [] Eyes: Denies change in visual acuity, redness, or eye pain [] HENT: Denies nasal congestion or sore throat [] Respiratory: Denies cough or shortness of breath [] Cardiovascular: No additional information not addressed in HPI [] GI: Denies abdominal pain, nausea, vomiting, bloody stools or diarrhea [] : Denies dysuria or hematuria [] Musculoskeletal: Reports low back pain Integument: Denies rash or skin lesions [] Neurologic: Denies headache, focal weakness or sensory changes [] All other systems were reviewed and found to be within normal limits, except as documented in this note. (ANGELA NARVAEZ APRN) Current Medications Current Medications Current Medications Medications (Trade) Dose Ordered Sig/Marian Start Time Stop Time Status Last Admin Dose Admin Acetaminophen/ Hydrocodone Bitart (Lortab 5/325) 2 tab 1X ONCE 12/21/18 15:45 12/21/18 15:46 DC 12/21/18 16:05 2 TAB Cyclobenzaprine HCl (Flexeril) 10 mg 1X ONCE 12/21/18 15:45 12/21/18 15:46 DC 12/21/18 16:03 10 MG (KARI DURON DO) Allergies Allergies Allergies Coded Allergies Type Severity Reaction Last Updated Verified Iodine and Iodide Containing Produc Allergy Intermediate 11/13/16 Yes ibuprofen Allergy Intermediate 09/27/17 Yes levofloxacin Allergy Intermediate 09/27/17 Yes (KARI DURON DO) Physical Exam Physical Exam Constitutional: Well developed, well nourished, no acute distress, non-toxic appearance. [] HENT: Normocephalic, atraumatic, bilateral external ears normal, oropharynx moist, no oral exudates, nose normal. [] Eyes: PERRLA, EOMI, conjunctiva normal, no discharge. [] Neck: Normal range of motion, no tenderness, supple, no stridor. [] Cardiovascular:Heart rate regular rhythm, no murmur [] Lungs & Thorax: Bilateral breath sounds clear to auscultation [] Abdomen: Bowel sounds normal, soft, no tenderness, no masses, no pulsatile masses. [] Skin: Warm, dry, no erythema, no rash. [] Back: Tenderness midline to the lumbar spine. Slight thoracic midline tenderness of the thoracic spine. No CVA tenderness. [] Extremities: No tenderness, no cyanosis, no clubbing, ROM intact, no edema. [] Neurologic: Alert and oriented X 3, normal motor function, normal sensory function, no focal deficits noted. [] Psychologic: Affect normal, judgement normal, mood normal. [] (ANGELA NARVAEZ APRN) Current Patient Data Vital Signs Vital Signs Date Time Temp Pulse Resp B/P (MAP) Pulse Ox O2 Delivery O2 Flow Rate FiO2 12/21/18 16:05 16 95 Room Air 12/21/18 15:37 97.7 77 147/84 (105) 97.7 (KARI DURON DO) Lab Values Laboratory Tests Test 12/21/18 16:58 Urine Collection Type Unknown Urine Color Yellow Urine Clarity Clear Urine pH 7.0 Urine Specific [place] <=1.005 Urine Protein Negative mg/dL (NEG-TRACE) Urine Glucose (UA) Negative mg/dL (NEG) Urine Ketones (Stick) Negative mg/dL (NEG) Urine Blood Negative (NEG) Urine Nitrite Negative (NEG) Urine Bilirubin Negative (NEG) Urine Urobilinogen Dipstick 0.2 mg/dL (0.2 mg/dL) Urine Leukocyte Esterase Trace (NEG) Urine RBC 0 /HPF (0-2) Urine WBC Occ /HPF (0-4) Urine Squamous Epithelial Cells Few /LPF Urine Bacteria Few /HPF (0-FEW) Microbiology 12/21/18 Urine Culture - Final, Complete 12/21/18 Urine Culture Result 1 (SOO) - Final, Complete 12/21/18 Antimicrobic Susceptibility - Final, Complete (KARI DURON DO) EKG EKG [] (ANGELA NARVAEZ APRN) Radiology/Procedures Radiology/Procedures []PROCEDURE: CT LUMBAR SPINE WO CONTRAST CT LUMBAR SPINE WO CONTRAST Indication: Fall, low back pain Technique: Noncontrast CT imaging was performed of the lumbar spine, multiplanar reconstruction images submitted. One or more of the following individualized dose reduction techniques were utilized for this examination: 1. Automated exposure control 2. Adjustment of the mA and/or kV according to patient size 3. Use of iterative reconstruction technique. Comparison: July 11, 2017 Findings: There is a fracture of the anterior superior corner of L4 with minimal displacement, extending from the anterior cortical surface to the anterior, superior endplate. There is mild superior endplate concavity, no significant osseous retropulsion. There is again mild grade 1 anterior spondylolisthesis L5-S1, to lesser degree at L3-4 and L4-5, also minimal posterior subluxation L1 relative to L2. There is again advanced degenerative disc disease at L1-L2, to lesser degree at L2-3, L4-5, minimally L5-S1 and L3-4. There is again sclerotic endplate change at L1-L2. There is qdik-ty-sndgfwao levoscoliosis centered near L1-L2. There is mild left lateral subluxation of L3 relative L4, mild right lateral subluxation L1 relative L2. There is multilevel lumbar facet degenerative change. There is moderate narrowing of the right L1-2 neural foramen. IMPRESSION: 1. There is acute fracture involving the anterior superior corner of L4 and mild superior L4 endplate compression fracture not associated with significant osseous retropulsion. 2. There is multilevel lumbar degenerative disc disease. There is multilevel mild abnormal alignment as stated, multilevel facet degenerative change. There is lumbar levoscoliosis. Electronically signed by: Bayron South MD (12/21/2018 5:54 PM) [facility] DICTATED and SIGNED BY: BAYRON SOUTH MD DATE: 12/21/18 1746 (ANGELA NARVAEZ APRN) Course & Med Decision Making Course & Med Decision Making Pertinent Labs and Imaging studies reviewed. (See chart for details) This is a 83-year-old female patient presented to the ED today with mid and low back pain status post falling in her garage. She initially was refusing CT is of the lumbar spine and thoracic spine stating she has a CT scheduled tomorrow with IV contrast for bladder issues. Her thoracic spine x-rays and lumbar spine x-rays were noted for compression fracture of L4 with approximately 25% height loss and retropulsion. Patient was given results. She accepted to have the CT scan of the lumbar spine. CT of the lumbar spine shows acute L4 compression fracture. Patient is up ambulating. Spoke with Lyudmila HAMPTON for neurosurgery, she states it patient's pain is controlled and she is able to ambulate. Patient's pain is well controlled. She is ambulating. She was discharged to home with hydrocodone and cyclobenzaprine. Follow-up with neurosurgery in the next 1-3 days. Ice elevation encouraged. Lyudmila stated she will order patient LSO brace. (ANGELA NARVAEZ APRN) Dragon Disclaimer Dragon Disclaimer This electronic medical record was generated, in whole or in part, using a voice recognition dictation system. (ANGELA NARVAEZ APRN) Departure Departure Impression: Primary Impression: Fall from standing Additional Impressions: Compression fracture of L4 vertebra Contusion of thoracic wall Disposition: 01 HOME, SELF-CARE Condition: STABLE Referrals: JN GOMEZ MD (PCP) JOURDAN VELÁSQUEZ MD follow up in 1-3 days Patient Instructions: Back, Compression Fracture, Fall Prevention and Home Safety Additional Instructions: You were evaluated in the emergency room and noted to have acute L4 compression fracture. Take the prescribed medications as needed for pain. Try to ice the affected area. Follow up with the provided neurosurgeon in the next 1-3 days. Scripts Cyclobenzaprine Hcl (CYCLOBENZAPRINE HCL) 10 Mg Tablet 1 TAB PO TID, #30 TAB Prov: ANGELA NARVAEZ APRN 12/21/18 Hydrocodone/Apap 5-325 (NORCO 5-325 TABLET) 1 Each Tablet 1-2 TAB PO Q4-6HRS, #30 TAB Prov: ANGELA NARVAEZ APRN 12/21/18 Attending Signature Attending Signature I have reviewed the PA/BREWERY TECHNICIAN's note and plan of care. I was available for consultation as needed during the patient's visit in the emergency department. I agree with the clinical impression, plan, and disposition. (KARI DURON DO) Problem Qualifiers Primary Impression: Fall from standing Encounter type: initial encounter Qualified Codes: W19.XXXA - Unspecified fall, initial encounter Additional Impressions: Compression fracture of L4 vertebra Encounter type: initial encounter Fracture type: closed Qualified Codes: S32.040A - Wedge compression fracture of fourth lumbar vertebra, initial encounter for closed fracture Contusion of thoracic wall Encounter type: initial encounter Contusion of thoracic wall detail: back wall of thorax Laterality: unspecified laterality Qualified Codes: S20.229A - Contusion of unspecified back wall of thorax, initial encounter ANGELA NARVAEZ APRN Dec 21, 2018 18:17 KARI DURON DO Dec 25, 2018 13:56
[2018-12-21] MEDS ORDERED: HYDR-3164 PO (19:08)
[2018-12-21] MEDS ORDERED: CYCL10TA2 PO (19:08)
== END 2018-12-21 19:17 | disposition home or self-care (01) ==
LOC: ER 13:40
DX: S32.040A Wedge compression fracture of fourth lumbar vertebra, initial encounter for closed fracture (principal); S20.229A Contusion of unspecified back wall of thorax, initial encounter; E78.00 Pure hypercholesterolemia, unspecified; I48.91 Unspecified atrial fibrillation; I10 Essential (primary) hypertension; Z95.0 Presence of cardiac pacemaker; Z88.1 Allergy status to other antibiotic agents; Z91.041 Radiographic dye allergy status; Z88.8 Allergy status to other drugs, medicaments and biological substances; W18.09XA Striking against other object with subsequent fall, initial encounter; Y93.I9 Activity, other involving external motion; Y92.488 Other paved roadways as the place of occurrence of the external cause; Y99.8 Other external cause status
CPT/HCPCS: 72072; 72100; 72131; 81001; 87086; 87186; 99285-25